=== PATIENT | female | born 1980 | race Caucasian/White ===

== ENCOUNTER 2017-08-19 11:24 | Inpatient (IN) | payer BC ==
[2017-08-19 13:45] LABS: BASOPHILS # (AUTO) 0.1 X10^3/uL (0.0-0.1); BASOPHILS % (AUTO) 0.9 % (0.2-1.0); EOSINOPHILS # (AUTO) 0.3 x10^3/uL (0.0-0.2); EOSINOPHILS % (AUTO) 4.3 % (0.9-2.9); HEMATOCRIT 44.5 % (36.0-47.0); HEMOGLOBIN 15.1 g/dL (12.0-16.0); LYMPHOCYTES # (AUTO) 1.8 X10^3/uL (1.3-2.9); LYMPHOCYTES % (AUTO) 26.6 % (21.0-51.0); MEAN CORPUSCULAR VOLUME 85.5 fL (80.0-100.0); MEAN PLATELET VOLUME 9.3 fL (7.4-11.0); MONOCYTES # (AUTO) 0.5 x10^3/uL (0.3-0.8); NEUTROPHILS # (AUTO) 4.1 x10^3/uL (2.2-4.8); NEUTROPHILS % (AUTO) 60.2 % (42.0-75.0); PLATELET COUNT 252 X10^3/uL (150.0-450.0); RED BLOOD COUNT 5.21 X10^6/uL (3.5-5.4); WHITE BLOOD COUNT 6.8 X10^3/uL (3.6-10.0)
[2017-08-19 13:54] LABS: ALANINE AMINOTRANSFERASE 27 Units/L (12-78); ALBUMIN 3.6 g/dL (3.4-5.0); ALKALINE PHOSPHATASE 95 Units/L (46-116); ASPARTATE AMINO TRANSFERASE 20 Units/L (15-37); BLOOD UREA NITROGEN 12 mg/dL (7-18); CALCIUM 9.1 mg/dL (8.5-10.1); CARBON DIOXIDE 28.5 mmol/L (21-32); CHLORIDE 104 mmol/L (98-107); CREATININE 0.84 mg/dL (0.55-1.02); SODIUM 142 mmol/L (136-145); TOTAL PROTEIN 7.9 g/dL (6.4-8.2); eGFR BLACK RACES > 60 (>60); eGFR NON BLACK RACES > 60 (>60)
[2017-08-19] MEDS ORDERED: NS 1/2 1000 ML IV 1,000 ML IV ONE (14:27)
--- NOTE | 2017-08-19 14:27 | RAD ---
Examination: Chest, PA and lateral views History: Pneumonia, SOB Comparison 12/03/2016 Continued normal heart size with clear lungs and pleural spaces. Impression: No interval change; no acute abnormality demonstrated. Reported By:
[2017-08-19] MEDS: FORTAZ or TAZICEF INJ 1 GM in NS 100 ML IV + SPIKE MINIBAG* 100 ML IV SCH ×3 (14:35→21:59)
[2017-08-19] MEDS: LEVAQUIN PREMIX IV 750 MG 750 MG/150 ML BAG IV SCH (14:36)
[2017-08-19] MEDS: NS 1/2 1000 ML IV 1,000 ML IV SCH (14:36)
[2017-08-19] MEDS: ROBITUSSIN DM PO SCH ×3 (14:36→22:07)
--- NOTE | 2017-08-19 15:48 | DR.UPDATE ---
H&P Update History and Physical Update: WAS SEEN IN THE OFFICE TODAY. A H&P WAS COMPLETED PRIOR TO ADMISSION. PATIENT HAS BEEN SEEN AND EXAMINED WITH NO CHANGES NOTED TO H&P. Changes noted: NO Yes with the following:
[2017-08-19] MEDS: DUONEB 0.5 MG/3 MG NEB SCH ×2 (17:10→20:59)
[2017-08-19] MEDS ORDERED: TYLENOL 325 MG TAB PO PRN (22:03)
[2017-08-20] MEDS: FORTAZ or TAZICEF INJ 1 GM in NS 100 ML IV + SPIKE MINIBAG* 100 ML IV SCH ×3 (05:50→22:15)
[2017-08-20] MEDS: TUSSIONEX PENNKINETIC SUSP PO PRN ×2 (05:56→22:19)
[2017-08-20 06:10] LABS: BASOPHILS % (AUTO) 0.6 % (0.2-1.0); EOSINOPHILS # (AUTO) 0.2 x10^3/uL (0.0-0.2); EOSINOPHILS % (AUTO) 5.2 % (0.9-2.9); HEMATOCRIT 38.2 % (36.0-47.0); HEMOGLOBIN 12.9 g/dL (12.0-16.0); LYMPHOCYTES # (AUTO) 1.3 X10^3/uL (1.3-2.9); MEAN CORPUSCULAR HEMOGLOBIN 28.9 pg (27.0-34.0); MEAN CORPUSCULAR HGB CONC 33.7 g/dL (33.0-35.0); MEAN CORPUSCULAR VOLUME 85.7 fL (80.0-100.0); MONOCYTES # (AUTO) 0.4 x10^3/uL (0.3-0.8); MONOCYTES % (AUTO) 9.4 % (0.0-13.0); NEUTROPHILS % (AUTO) 50.8 % (42.0-75.0); PLATELET COUNT 185 X10^3/uL (150.0-450.0); RED BLOOD COUNT 4.45 X10^6/uL (3.5-5.4); RED CELL DISTRIBUTION WIDTH 14.2 % (11.6-16.5); WHITE BLOOD COUNT 3.9 X10^3/uL (3.6-10.0)
[2017-08-20 06:14] LABS: ALANINE AMINOTRANSFERASE 21 Units/L (12-78); ALBUMIN 2.9 g/dL (3.4-5.0); ALKALINE PHOSPHATASE 80 Units/L (46-116); ASPARTATE AMINO TRANSFERASE 15 Units/L (15-37); BLOOD UREA NITROGEN 11 mg/dL (7-18); CALCIUM 8.7 mg/dL (8.5-10.1); CARBON DIOXIDE 28.3 mmol/L (21-32); CHLORIDE 105 mmol/L (98-107); COR CA(FOR HYPOALB) 9.6 mg/dL (8.5-10.1); COR NA(FOR HYPERGLY) 141 mmol/L (136-145); CREATININE 0.86 mg/dL (0.55-1.02); SODIUM 140 mmol/L (136-145); TOTAL PROTEIN 6.7 g/dL (6.4-8.2); eGFR BLACK RACES > 60 (>60); eGFR NON BLACK RACES > 60 (>60)
[2017-08-20] MEDS: DUONEB 0.5 MG/3 MG NEB SCH ×4 (08:58→20:15)
[2017-08-20] MEDS ORDERED: LEXAPRO ONE (09:28)
[2017-08-20] MEDS: ROBITUSSIN DM PO SCH ×4 (09:36→22:18)
[2017-08-20] MEDS: LEXAPRO PO SCH (09:36)
[2017-08-20] MEDS: LEVAQUIN PREMIX IV 750 MG 750 MG/150 ML BAG IV SCH (09:36)
[2017-08-20] MEDS: MAXZIDE 37.5/25 MG PO SCH (09:37)
[2017-08-20 11:58] VITALS: BMI 47.6
[2017-08-20] MEDS ORDERED: NS 1/2 1000 ML IV 1,000 ML IV ONE (12:04)
[2017-08-20] MEDS: NS 1/2 1000 ML IV 1,000 ML IV SCH ×2 (12:12→17:45)
[2017-08-20] MEDS: ROCEPHIN VIAL 1 GM 1 GM in NS 100 ML IV + SPIKE MINIBAG* 100 ML IV SCH (18:27)
[2017-08-20] MEDS: AMBIEN PO PRN ×2 (22:15→22:17)
[2017-08-20] MEDS: TAMIFLU PO SCH (22:17)
[2017-08-21] MEDS: FORTAZ or TAZICEF INJ 1 GM in NS 100 ML IV + SPIKE MINIBAG* 100 ML IV SCH ×2 (05:41→13:47)
[2017-08-21 06:11] LABS: BASOPHILS % (AUTO) 0.5 % (0.2-1.0); EOSINOPHILS # (AUTO) 0.2 x10^3/uL (0.0-0.2); EOSINOPHILS % (AUTO) 3.7 % (0.9-2.9); HEMOGLOBIN 13.1 g/dL (12.0-16.0); LYMPHOCYTES # (AUTO) 1.5 X10^3/uL (1.3-2.9); LYMPHOCYTES % (AUTO) 32.1 % (21.0-51.0); MEAN CORPUSCULAR HEMOGLOBIN 28.7 pg (27.0-34.0); MEAN CORPUSCULAR HGB CONC 33.5 g/dL (33.0-35.0); MEAN CORPUSCULAR VOLUME 85.7 fL (80.0-100.0); MEAN PLATELET VOLUME 9.3 fL (7.4-11.0); MONOCYTES # (AUTO) 0.4 x10^3/uL (0.3-0.8); MONOCYTES % (AUTO) 8.7 % (0.0-13.0); NEUTROPHILS # (AUTO) 2.6 x10^3/uL (2.2-4.8); PLATELET COUNT 188 X10^3/uL (150.0-450.0); RED BLOOD COUNT 4.56 X10^6/uL (3.5-5.4); RED CELL DISTRIBUTION WIDTH 13.9 % (11.6-16.5); WHITE BLOOD COUNT 4.7 X10^3/uL (3.6-10.0)
[2017-08-21 06:17] LABS: ALANINE AMINOTRANSFERASE 19 Units/L (12-78); ALKALINE PHOSPHATASE 80 Units/L (46-116); ASPARTATE AMINO TRANSFERASE 13 Units/L (15-37); BLOOD UREA NITROGEN 8 mg/dL (7-18); CALCIUM 8.9 mg/dL (8.5-10.1); CARBON DIOXIDE 28.8 mmol/L (21-32); CHLORIDE 102 mmol/L (98-107); COR CA(FOR HYPOALB) 9.7 mg/dL (8.5-10.1); COR NA(FOR HYPERGLY) 139 mmol/L (136-145); CREATININE 0.81 mg/dL (0.55-1.02); SODIUM 139 mmol/L (136-145); TOTAL PROTEIN 6.9 g/dL (6.4-8.2); eGFR BLACK RACES > 60 (>60); eGFR NON BLACK RACES > 60 (>60)
--- NOTE | 2017-08-21 07:16 | RAD ---
08/19/2017 Findings: Examination: Chest, PA and lateral views History: Pneumonia Comparison Continued normal cardiac size with essentially clear lungs and pleural spaces. Impression: No change; no acute findings. Reported By:
[2017-08-21] MEDS ORDERED: LEXAPRO ONE (08:18)
[2017-08-21] MEDS ORDERED: NS 1/2 1000 ML IV 1,000 ML IV ONE (08:18)
[2017-08-21] MEDS: NS 1/2 1000 ML IV 1,000 ML IV SCH (08:29)
[2017-08-21] MEDS: TAMIFLU PO SCH ×2 (08:29→21:51)
[2017-08-21] MEDS: ROCEPHIN VIAL 1 GM 1 GM in NS 100 ML IV + SPIKE MINIBAG* 100 ML IV SCH (08:29)
[2017-08-21] MEDS: ROBITUSSIN DM PO SCH ×4 (08:29→21:51)
[2017-08-21] MEDS: MAXZIDE 37.5/25 MG PO SCH (08:30)
[2017-08-21] MEDS: LEXAPRO PO SCH (08:30)
[2017-08-21] MEDS: MILK OF MAGNESIA PO SCH ×2 (08:36→21:51)
[2017-08-21] MEDS: DUONEB 0.5 MG/3 MG NEB SCH ×4 (09:17→21:01)
[2017-08-21] MEDS ORDERED: SINGULAIR TAB 10 MG ONE (09:49)
[2017-08-21] MEDS ORDERED: SYNTHROID 100 mcg TAB ONE (09:49)
[2017-08-21] MEDS ORDERED: DETROL LA 4 MG CAP EXT REL PO ONE (09:49)
[2017-08-21] MEDS ORDERED: NEURONTIN CAP 100 MG PO ONE (09:50)
[2017-08-21] MEDS ORDERED: NORVASC TAB 5 MG ONE (09:50)
[2017-08-21] MEDS ORDERED: CELEXA ONE (09:50)
[2017-08-21] MEDS ORDERED: ATIVAN TAB 1 MG ONE (09:50)
[2017-08-21] MEDS: TUSSIONEX PENNKINETIC SUSP PO PRN (21:51)
[2017-08-21] MEDS: AMBIEN PO PRN (21:51)
[2017-08-21] MEDS: COLACE CAP 100 MG PO SCH (21:52)
[2017-08-22] MEDS ORDERED: NS 1/2 1000 ML IV 1,000 ML IV ONE (02:33)
[2017-08-22] MEDS: NS 1/2 1000 ML IV 1,000 ML IV SCH (02:43)
[2017-08-22 06:07] LABS: BASOPHILS % (AUTO) 0.5 % (0.2-1.0); EOSINOPHILS # (AUTO) 0.2 x10^3/uL (0.0-0.2); EOSINOPHILS % (AUTO) 2.7 % (0.9-2.9); HEMATOCRIT 38.1 % (36.0-47.0); HEMOGLOBIN 12.9 g/dL (12.0-16.0); LYMPHOCYTES # (AUTO) 1.5 X10^3/uL (1.3-2.9); LYMPHOCYTES % (AUTO) 24.3 % (21.0-51.0); MEAN CORPUSCULAR HEMOGLOBIN 28.9 pg (27.0-34.0); MEAN CORPUSCULAR VOLUME 85.1 fL (80.0-100.0); MEAN PLATELET VOLUME 9.5 fL (7.4-11.0); MONOCYTES # (AUTO) 0.5 x10^3/uL (0.3-0.8); MONOCYTES % (AUTO) 7.4 % (0.0-13.0); NEUTROPHILS # (AUTO) 4.1 x10^3/uL (2.2-4.8); NEUTROPHILS % (AUTO) 65.1 % (42.0-75.0); PLATELET COUNT 190 X10^3/uL (150.0-450.0); RED BLOOD COUNT 4.47 X10^6/uL (3.5-5.4); RED CELL DISTRIBUTION WIDTH 13.9 % (11.6-16.5); WHITE BLOOD COUNT 6.3 X10^3/uL (3.6-10.0)
--- NOTE | 2017-08-22 06:08 | RAD ---
HISTORY: Follow-up pneumonia Study: Chest PA and lateral Comparison: 08/21/2017, 08/19/2017 Findings: The heart is within normal limits in size. The naz are normal. The lungs are well inflated and free of acute infiltrates. No pleural effusions are identified. The bony thorax is unremarkable. IMPRESSION: No significant abnormality identified Reported By:
[2017-08-22 06:37] LABS: ALANINE AMINOTRANSFERASE 17 Units/L (12-78); ALKALINE PHOSPHATASE 82 Units/L (46-116); ASPARTATE AMINO TRANSFERASE 11 Units/L (15-37); BLOOD UREA NITROGEN 8 mg/dL (7-18); CALCIUM 8.8 mg/dL (8.5-10.1); CARBON DIOXIDE 25.8 mmol/L (21-32); CHLORIDE 102 mmol/L (98-107); COR CA(FOR HYPOALB) 9.6 mg/dL (8.5-10.1); COR NA(FOR HYPERGLY) 137 mmol/L (136-145); CREATININE 0.76 mg/dL (0.55-1.02); SODIUM 137 mmol/L (136-145); TOTAL PROTEIN 6.9 g/dL (6.4-8.2); eGFR BLACK RACES > 60 (>60); eGFR NON BLACK RACES > 60 (>60)
[2017-08-22] MEDS ORDERED: LEXAPRO ONE (07:53)
[2017-08-22] MEDS: LEXAPRO PO SCH (08:00)
[2017-08-22] MEDS: TAMIFLU PO SCH (08:00)
[2017-08-22] MEDS: ROBITUSSIN DM PO SCH (08:00)
[2017-08-22] MEDS: MAXZIDE 37.5/25 MG PO SCH (08:00)
[2017-08-22] MEDS: MILK OF MAGNESIA PO SCH ×2 (08:00→08:05)
[2017-08-22] MEDS: ROCEPHIN VIAL 1 GM 1 GM in NS 100 ML IV + SPIKE MINIBAG* 100 ML IV SCH (08:03)
[2017-08-22] MEDS: DUONEB 0.5 MG/3 MG NEB SCH (08:56)
[2017-08-22 09:12] VITALS: BP 119/69
== END 2017-08-22 11:20 | disposition home or self-care (01) | DRG 195 ==
LOC: UNDOADMIN 11:24 → MED/SURG 11:24
PROVIDERS: ADMIT Internal Medicine; ATTEND Internal Medicine
DX: J10.1 Influenza due to other identified influenza virus with other respiratory manifestations (principal); J18.8 Other pneumonia, unspecified organism; J20.8 Acute bronchitis due to other specified organisms; R06.02 Shortness of breath
CPT/HCPCS: 36415; 71046; 80053; 85025; 87040; 87205; 94640; 94760; A4222; G9035; J0696; J0713; J1956; J7620